=== PATIENT | male | born 1955 | race African-American/Black ===

== ENCOUNTER 2016-04-25 08:11 | Emergency (ER) | payer OTHER ==
[2016-04-25 08:18] VITALS: BMI 22.3
[2016-04-25] MEDS ORDERED: KETOROLAC TROMETHAMINE 30 MG/1 ML VIAL IVPUSH ONE (08:52)
--- NOTE | 2016-04-25 08:52 | PDOC ---
History of Present Illness - General History Source: Patient, Old Records Exam Limitations: No Limitations - History of Present Illness Initial Comments: 04/25/16 08:32 The patient is a 60-year-old man, accompanied by his , with a significant past medical history of hypertension, hypercholesterolemia, coronary artery disease status post cardiac stent placement and asthma who presents to the emergency department via walk-in for further evaluation of right testicular pain since last night. Patient states that ever since he shoveled the snow, last week he started to experiencing left lower back pain that radiated down to his groin that had subsequently resolved. He states that he ultimately developed right sided lower back pain that radiated down his right groin and since yesterday, it has radiated down his right testicle. He states that he bended forward this morning, and this exacerbated his right testicular pain. He denies every experiencing similar pains in the past. No fall, trauma, strenuous activity. No history of sexually transmitted infections/diseases. No associated symptoms of abdominal pain, nausea, vomiting, diarrhea, dysuria, penile discharge. No fever, chills, generalized weakness, chest pain, lightheadedness, dizziness, cough, shortness of breath. Allergies: No Known Drug Allergies Past Surgical History: Cardiac stent placement. Social History: No tobacco, ETOH use. Marijuana use. Primary Care Physician: Dr. Dean Solorio [phone] <Cookie Leone - Last Filed: 04/25/16 12:06> - General History Source: Patient, Old Records Exam Limitations: No Limitations <Ju Campbell - Last Filed: 04/25/16 12:31> - General Chief Complaint: Pain, Acute Stated Complaint: ABD/GROIN PAIN Time Seen by Provider: 04/25/16 08:32 Past History <Cookie Leone - Last Filed: 04/25/16 12:06> - Past Medical History Asthma: Yes Cardiac Disorders: Yes HTN: Yes Hypercholesterolemia: Yes - Surgical History Cardiac Surgery: Yes (STENT) - Immunization History Immunization Up to Date: No - Psycho/Social/Smoking Cessation Hx Anxiety: No Suicidal Ideation: No Smoking Status: No Smoking History: Never smoked Have you smoked in the past 12 months: No Number of Cigarettes Smoked Daily: 0 Hx Alcohol Use: No Drug/Substance Use Hx: No <Ju Campbell - Last Filed: 04/25/16 12:31> - Past Medical History Allergies/Adverse Reactions: Allergies Allergy/AdvReac Type Severity Reaction Status Date / Time No Known Allergies Allergy Verified 04/25/16 08:19 Home Medications: Ambulatory Orders Albuterol Sulfate Inhaler - [Ventolin HFA Inhaler -] 2 inh PO Q4H PRN #1 inh Aspirin [ASA -] 81 mg PO DAILY 11/21/12 Atorvastatin Ca [Lipitor -] 80 mg PO HS 11/21/12 Lisinopril [Prinivil -] 20 mg PO DAILY 11/21/12 Metoprolol Tartrate [Lopressor] 25 mg PO DAILY 11/21/12 Review of Systems - Review of Systems Able to Perform ROS?: Yes Comments:: 04/25/16 08:32 GENERAL/CONSTITUTIONAL: No fever or chills. No weakness. HEAD, EYES, EARS, NOSE AND THROAT: No change in vision. No ear pain or discharge. No sore throat. CARDIOVASCULAR: No chest pain or shortness of breath. RESPIRATORY: No cough, wheezing, or hemoptysis. GASTROINTESTINAL: No nausea, vomiting, diarrhea or constipation. GENITOURINARY:Yes: Right sided testicular and groin pain.No dysuria, frequency, or change in urination. MUSCULOSKELETAL: Yes: left lower back pain (now resolved). Right sided lower back pain.No joint swelling or pain. No neck or back pain. SKIN: No rash NEUROLOGIC: No headache, vertigo, loss of consciousness, or change in strength/ sensation. ENDOCRINE: No increased thirst. No abnormal weight change. HEMATOLOGIC/LYMPHATIC: No anemia, easy bleeding, or history of blood clots. ALLERGIC/IMMUNOLOGIC: No hives or skin allergy. <Cookie Leone - Last Filed: 04/25/16 12:06> *Physical Exam - Vital Signs Last Vital Signs Temp Pulse Resp BP Pulse Ox 97.9 F 57 L 18 116/61 97 04/25/16 08:12 04/25/16 08:12 04/25/16 08:12 04/25/16 08:12 04/25/16 08:12 - Physical Exam Comments: 04/25/16 08:32 GENERAL: Awake, alert, and fully oriented, in no acute distress HEAD: No signs of trauma EYES: PERRLA, EOMI, sclera anicteric, conjunctiva clear ENT: Auricles normal inspection, hearing grossly normal, nares patent, oropharynx clear without exudates. Moist mucosa NECK: Normal ROM, supple, no lymphadenopathy, JVD, or masses LUNGS: Breath sounds equal, clear to auscultation bilaterally. No wheezes, and no crackles HEART: Regular rate and rhythm, normal S1 and S2, no murmurs, rubs or gallops ABDOMEN: Soft, nontender, normoactive bowel sounds. No guarding, no rebound. No masses : Uncircumcised penis with no penile discharge. Testes were descending x2. There is some tenderness to palpation of the right testicle. No scrotal edema noted and no inguinal hernia appreciated. EXTREMITIES: Normal range of motion, no edema. No clubbing or cyanosis. No cords, erythema, or tenderness NEUROLOGICAL: Cranial nerves II through XII grossly intact. Normal speech, normal gait <Cookie Leone - Last Filed: 04/25/16 12:06> - Vital Signs Last Vital Signs Temp Pulse Resp BP Pulse Ox 97.9 F 57 L 18 116/61 97 04/25/16 08:12 04/25/16 08:12 04/25/16 08:12 04/25/16 08:12 04/25/16 08:12 <Ju Campbell - Last Filed: 04/25/16 12:31> ED Treatment Course - LABORATORY CBC & Chemistry Diagram: 04/25/16 09:15 04/25/16 09:15 - RADIOLOGY Radiograph Interpretation: 04/25/16 12:06 EXAM: US/SCROTUM AND CONTENTS US IMPRESSION: Right testicular pain. Real time and doppler evaluation of the testes demonstrates the following: The testes are normal in size with the right testicle measuring 3.5 x 2.3 x 1.9 cm and the left testicle measuring 3.3 x 2.5 x 1.9 cm. They are normal in texture with no evidence of testicular masses. Normal arterial flow is seen within both testes with no evidence of torsion. No epididymal abnormalities are present. There is a very small right-sided hydrocele. No significant left scrotal fluid collections are present. <Cookie Leone - Last Filed: 04/25/16 12:06> - LABORATORY CBC & Chemistry Diagram: 04/25/16 09:15 04/25/16 09:15 <Ju Campbell - Last Filed: 04/25/16 12:31> Medical Decision Making - Medical Decision Making 04/25/16 08:53 60-year-old male with history of hypertension who presents the emergency department with one day history of right testicle pain. Differential diagnosis includes but is not limited to: Torsion, epididymitis, hernia, kidney stone, UTI. Plan: 1. Labs 2. Urine analysis and GC/chlamydia NAAT 3. Scrotal ultrasound 4. Pain management 5. Observe and reevaluate 04/25/16 12:29 Addendum: Labs were reviewed and are noted in the EMR. The urine has no blood, nitrites, or leukoesterase. The scrotal ultrasound shows a small right hydrocele but otherwise there is no epididymitis or testicular torsion. I have reevaluated the patient at this time and he is feeling improved. I have discussed all of the labs and radiographic studies with the patient. I've advised the patient follow-up with his primary care physician and return to the emergency department if his symptoms persist, worsen, or new symptoms arise. <Ju Campbell - Last Filed: 04/25/16 12:31> *DC/Admit/Observation/Transfer - Attestations Scribe Attestion: 04/25/16 08:32 Documentation prepared by Cookie Leone, acting as medical referral coordinator for Ju Campbell MD. <Cookie Leone - Last Filed: 04/25/16 12:06> - Discharge Dispostion Admit: No - Attestations Physician Attestion: 04/25/16 08:55 I, Dr. Ju Campbell, attest that the scribes documentation that appears above has been prepared under my direction and personally reviewed by me in its entirety. I confirmed that the note above accurately reflects all work, treatment, procedures, and medical decision-making performed by me. <Ju Campbell - Last Filed: 04/25/16 12:31> Diagnosis at time of Disposition: Testicular pain, right - Discharge Dispostion Disposition: HOME Condition at time of disposition: Stable - Referrals Referrals: Dean Solorio MD [Primary Care Provider] - - Patient Instructions Additional Instructions: You were seen today for testicular pain. The ultrasound shows that there is no infection or torsion of the testicle. Your urine analysis was negative. Please take Motrin/ibuprofen 800 mg every 6-8 hours as needed for pain. He should follow-up with her primary care physician within one week and return to the emergency department if her symptoms persist, worsen, or new symptoms arise.
[2016-04-25] MEDS ORDERED: KETOROLAC TROMETHAMINE 30 MG/1 ML VIAL ONE (09:01)
[2016-04-25 09:29] LABS: BASOPHIL 0.4 % (0-2.0); EOSINOPHIL 1.4 % (0-4.5); MCH 31.3 pg (25.7-33.7); MCHC 32.1 g/dl (32.0-35.9); MEAN CELL VOLUME 97.5 fl (80-96); NEUTROPHILS 64.9 % (42.8-82.8); PLATELET COUNT 108 K/MM3 (134-434); RDW 14.1 % (11.9-15.9); WHITE BLOOD COUNT 4.5 K/mm3 (4.0-10.0)
[2016-04-25 10:02] LABS: CALCIUM 8.2 mg/dL (8.5-10.1); CREATININE 0.8 mg/dL (0.7-1.3); MAGNESIUM 2.4 mg/dL (1.8-2.4); PHOSPHOROUS 3.1 mg/dL (2.5-4.9)
[2016-04-25 10:42] LABS: URINE APPEARANCE CLEAR; URINE BILIRUBIN NEGATIVE (NEGATIVE); URINE BLOOD NEGATIVE (NEGATIVE); URINE COLOR STRAW; URINE GLUCOSE (UA) NEGATIVE (NEGATIVE); URINE KETONE NEGATIVE (NEGATIVE); URINE LEUK ESTERASE NEGATIVE (NEGATIVE); URINE NITRITE NEGATIVE (NEGATIVE); URINE PROTEIN NEGATIVE (NEGATIVE); URINE UROBILINOGEN NEGATIVE E.U./dl (0.2-1.0)
[2016-04-25 13:09] VITALS: BP 156/82; PULSE 52; TEMP 98
== END 2016-04-25 13:00 | disposition home or self-care (01) ==
LOC: JER 08:11
PROC: 3E0333Z Introduction of Anti-inflammatory into Peripheral Vein, Percutaneous Approach (ICD-10-PCS; principal; 2016-04-25)
DX: N50.811 Right testicular pain (principal); I25.10 Atherosclerotic heart disease of native coronary artery without angina pectoris; I10 Essential (primary) hypertension; Z95.5 Presence of coronary angioplasty implant and graft; J45.909 Unspecified asthma, uncomplicated; E78.00 Pure hypercholesterolemia, unspecified
CPT/HCPCS: 36415; 76870-TC; 80048; 81003; 83735; 84100; 85025; 87491; 87591; 99282-25

== ENCOUNTER 2016-07-21 03:53 | Emergency (ER) | payer OTHER ==
[2016-07-21 04:14] VITALS: BP 148/80; PULSE 70; TEMP 98.4; BMI 22.3
[2016-07-21] MEDS ORDERED: ALBUTEROL SO4 2.5/IPRATROPIUM 0.5 INH SOL 3 ML VIAL.NEB. NEB ONE ×2 (05:06→06:14)
[2016-07-21] MEDS ORDERED: DEXAMETHASONE 4 MG TABLET (FP) PO ONE (05:07)
[2016-07-21 05:19] LABS: BASOPHIL 0.3 % (0-2.0); EOSINOPHIL 3.8 % (0-4.5); MCH 31.3 pg (25.7-33.7); MCHC 32.5 g/dl (32.0-35.9); MEAN CELL VOLUME 96.5 fl (80-96); PLATELET COUNT 149 K/MM3 (134-434); RDW 13.8 % (11.9-15.9); WHITE BLOOD COUNT 7.1 K/mm3 (4.0-10.0)
[2016-07-21] MEDS: AZITHROMYCIN 250 MG TABLET (FP) PO ONE ×2 (05:30→06:26)
[2016-07-21 05:49] LABS: ALBUMIN 3.7 g/dl (3.4-5.0); ANION GAP 8 (8-16); BILIRUBIN,TOTAL 1.1 mg/dL (0.2-1.0); CALCIUM 8.8 mg/dL (8.5-10.1); CO2 27 mmol/L (21-32); COCKROFT - GAULT 99.53; CREATININE 0.8 mg/dL (0.7-1.3); GLUCOSE,RANDOM 124 mg/dL (74-106); SGOT/AST 29 U/L (15-37); SGPT/ALT 38 U/L (12-78); TOT PROT 6.8 g/dl (6.4-8.2)
[2016-07-21 05:50] LABS: ALK PHOS 101 U/L (45-117)
--- NOTE | 2016-07-21 06:05 | PDOC ---
History of Present Illness - General Chief Complaint: Shortness of Breath Stated Complaint: DIFFICULTY BREATHING Time Seen by Provider: 07/21/16 04:25 - History of Present Illness Initial Comments: 07/21/16 05:48 CHIEF COMPLAINT: shortness of breath HISTORY OF PRESENT ILLNESS: 61 yo M with hx of HTN, HLD, asthma presents to ED with shortness of breath x 3-4 days. Patient states he has had a "sometimes" productive cough and sneezing for the past 3 days. He denies any fever, nausea , vomiting, diarrhea. No recent travel or sick contacts. PAST MEDICAL HISTORY: as per HPI FAMILY HISTORY: Denies SOCIAL HISTORY: Denies tobacco, alcohol. Occasional marijuana use. SURGICAL HISTORY: Denies ALLERGIES: No known drug allergies REVIEW OF SYSTEMS General/Constitutional: Denies fever or chills. Denies weakness, weight change. HEENT: Denies change in vision. Denies ear pain or discharge. Denies sore throat. Cardiovascular: Denies chest pain. Respiratory: Cough x 3 days. Denies hemoptysis. Gastrointestinal: Denies nausea, vomiting, diarrhea or constipation. Denies rectal bleeding. Genitourinary: Denies dysuria, frequency, or change in urination. Musculoskeletal: Denies joint or muscle swelling or pain. Denies neck or back pain. Skin and breasts: Denies rash or easy bruising. Neurologic: Denies headache, vertigo, loss of consciousness, or loss of sensation. PHYSICAL EXAM General Appearance: Well-appearing, appropriately dressed. No apparent distress , no intoxication. HEENT: EOMI, PERRLA, normal ENT inspection, normal voice, TMs normal, pharynx normal. No conjunctival pallor. No photophobia, scleral icterus. Neck: Supple. Trachea midline. No tenderness, rigidity, carotid bruit, stridor , lymphadenopathy, or thyromegaly. Respiratory/Chest: Expiratory wheezing and rales b/l. No shortness of breath, chest tenderness, respiratory distress, accessory muscle use. Cardiovascular: RRR. S1, S2. No JVD, murmur, bradycardia, tachycardia. Vascular Pulses: Dorsalis-Pedis (R): 2+, Dorsalis-Pedis (L): 2+ Gastrointestinal/Abdominal: Normal bowel sounds. Abdomen soft, non-distended. No tenderness or rebound tenderness. No organomegaly, pulsatile mass, guarding , hernia, hepatomegaly, splenomegaly. Lymphatic: No adenopathy, tenderness. Musculoskeletal/Extremities: Normal inspection. FROM of all extremities, normal capillary refill. Pelvis Stable. No CVA tenderness. No tenderness to extremities, pedal edema, swelling, erythema or deformity. Integumentary: Appropriate color, dry, warm. No cyanosis, erythema, jaundice or rash Neurologic: communication equipment mechanic II-XII intact. Fully oriented, alert. Appropriate mood/affect. Motor strength 5/5. No appreciable EOM palsy, facial droop or sensory deficit. 07/21/16 06:05 Past History - Past Medical History Allergies/Adverse Reactions: Allergies Allergy/AdvReac Type Severity Reaction Status Date / Time No Known Allergies Allergy Verified 07/21/16 04:13 Home Medications: Ambulatory Orders Albuterol Sulfate Inhaler - [Ventolin HFA Inhaler -] 2 inh PO Q4H PRN #1 inh Aspirin [ASA -] 81 mg PO DAILY 11/21/12 Atorvastatin Ca [Lipitor -] 80 mg PO HS 11/21/12 Lisinopril [Prinivil -] 20 mg PO DAILY 11/21/12 Metoprolol Tartrate [Lopressor] 25 mg PO DAILY 11/21/12 Azithromycin [Zithromax Tri-Casey (3 DAYS) -] 500 mg PO DAILY #3 tablet 07/21/16 Asthma: Yes Cardiac Disorders: Yes HTN: Yes Hypercholesterolemia: Yes - Surgical History Cardiac Surgery: Yes (STENT) - Immunization History Immunization Up to Date: No - Psycho/Social/Smoking Cessation Hx Anxiety: No Suicidal Ideation: No Smoking Status: No Smoking History: Current some day smoker Have you smoked in the past 12 months: Yes Number of Cigarettes Smoked Daily: 0 Information on smoking cessation initiated: No Hx Alcohol Use: No Drug/Substance Use Hx: (marijuana) *Physical Exam - Vital Signs Last Vital Signs Temp Pulse Resp BP Pulse Ox 98.4 F 70 18 148/80 97 07/21/16 04:13 07/21/16 04:13 07/21/16 04:13 07/21/16 04:13 07/21/16 04:13 ED Treatment Course - LABORATORY CBC & Chemistry Diagram: 07/21/16 05:06 07/21/16 05:06 - ADDITIONAL ORDERS Additional order review: 07/21/16 05:06 RBC 4.05 MCV 96.5 H MCHC 32.5 RDW 13.8 MPV 11.0 Neutrophils % 71.0 Lymphocytes % 18.1 D Monocytes % 6.8 Eosinophils % 3.8 D Basophils % 0.3 - RADIOLOGY Radiology Studies Ordered: Category Date Time Status CHEST PA & LAT [RAD] Stat Radiology 07/21/16 04:45 Taken Medical Decision Making - Medical Decision Making 07/21/16 06:05 61 yo M with hx of HTN, HLD, asthma presents to ED with shortness of breath x 3- 4 days. -CBC, CMP, BNP -CXR, EKG -Azithromycin -Decadron po -Duoneb EKG unchanged from prior. Patient reassessed; states he is feeling better. RX azithromycin sent to pharm. Will discharge to home with close f/u with PMD. Advised patient to take medication as prescribed and follow up with PMD. Advised patient of signs and symptoms for return to ED. Patient verbalized understanding and agrees to plan. 07/21/16 06:40 *DC/Admit/Observation/Transfer Diagnosis at time of Disposition: Bronchitis - Discharge Dispostion Admit: No - Prescriptions Prescriptions: Azithromycin [Zithromax Tri-Casey (3 DAYS) -] 500 mg PO DAILY #3 tablet - Referrals Referrals: Dean Solorio MD [Primary Care Provider] - - Patient Instructions Printed Discharge Instructions: DI for Acute Bronchitis Additional Instructions: Please take medication as prescribed. Follow up with your primary care doctor if symptoms persist after completing your medication. If you experience any shortness of breath unrelieved by your inhaler, chest pain, palpitations, fever , nausea, vomiting, diarrhea or any new or worsening symptoms, please return to the ER.
[2016-07-21] MEDS ORDERED: DEXAMETHASONE SOD PHOSPHATE 10 MG/1 ML VIAL ONE (06:15)
[2016-07-21] MEDS ORDERED: AZITHROMYCIN 250 MG TABLET (FP) ONE (06:16)
--- NOTE | 2016-07-21 06:17 | PDOC ---
*Physical Exam - Vital Signs Last Vital Signs Temp Pulse Resp BP Pulse Ox 98.4 F 70 18 148/80 97 07/21/16 04:13 07/21/16 04:13 07/21/16 04:13 07/21/16 04:13 07/21/16 04:16 ED Treatment Course - LABORATORY CBC & Chemistry Diagram: 07/21/16 05:06 07/21/16 05:06 - ADDITIONAL ORDERS Additional order review: Laboratory Results 07/21/16 07/21/16 05:06 05:06 Sodium 145 Potassium 3.6 Chloride 110 H Carbon Dioxide 27 Anion Gap 8 BUN 16 Creatinine 0.8 Creat Clearance w eGFR > 60 Random Glucose 124 H D Calcium 8.8 Total Bilirubin 1.1 H D AST 29 ALT 38 D Alkaline Phosphatase 101 B-Natriuretic Peptide 125.25 H Total Protein 6.8 Albumin 3.7 07/21/16 05:06 RBC 4.05 MCV 96.5 H MCHC 32.5 RDW 13.8 MPV 11.0 Neutrophils % 71.0 Lymphocytes % 18.1 D Monocytes % 6.8 Eosinophils % 3.8 D Basophils % 0.3 - Medications Given in the ED: ED Medications Discontinued Medications Generic Name Dose Route Start Last Admin Trade Name Freq PRN Reason Stop Dose Admin Albuterol/Ipratropium 1 amp 07/21/16 05:06 07/21/16 05:30 Duoneb - NEB 07/21/16 05:07 1 amp ONCE ONE Administration Azithromycin 500 mg 07/21/16 05:06 07/21/16 05:30 Zithromax - PO 07/21/16 05:07 500 mg ONCE ONE Administration Dexamethasone 10 mg 07/21/16 05:07 07/21/16 05:30 Decadron - PO 07/21/16 05:08 10 mg ONCE ONE Administration Medical Decision Making - Medical Decision Making 07/21/16 06:17 agree with care from ALETHA Mc *DC/Admit/Observation/Transfer Diagnosis at time of Disposition: Bronchitis - Prescriptions Prescriptions: Azithromycin [Zithromax Tri-Casey (3 DAYS) -] 500 mg PO DAILY #3 tablet - Referrals Referrals: Dean Solorio MD [Primary Care Provider] - - Patient Instructions - Post Discharge Activity
--- NOTE | 2016-07-21 12:30 | EKG ---
Test Reason : Blood Pressure : / mmHG Vent. Rate : 067 BPM Atrial Rate : 067 BPM P-R Int : 140 ms QRS Dur : 086 ms QT Int : 410 ms P-R-T Axes : 070 079 056 degrees QTc Int : 433 ms NORMAL SINUS RHYTHM MODERATE VOLTAGE CRITERIA FOR LVH, MAY BE NORMAL VARIANT BORDERLINE ECG WHEN COMPARED WITH ECG OF 19-JAN-2015 22:57, NO SIGNIFICANT CHANGE WAS FOUND Confirmed by MARY DOUGLAS, NIDIA ([id number]) on 07/21/2016 12:30:06 PM Referred By: Confirmed By:NIDIA HERNANDEZ MD
== END 2016-07-21 06:48 | disposition home or self-care (01) ==
LOC: JER 03:53
PROC: 3E0F7GC Introduction of Other Therapeutic Substance into Respiratory Tract, Via Natural or Artificial Opening (ICD-10-PCS; principal; 2016-07-21)
DX: J40 Bronchitis, not specified as acute or chronic (principal); I10 Essential (primary) hypertension; E78.5 Hyperlipidemia, unspecified; J45.909 Unspecified asthma, uncomplicated
CPT/HCPCS: 36415; 71020-TC; 80053; 83880; 85025; 93005; 93010; 99282-25

== ENCOUNTER 2018-05-16 16:23 | Emergency (ER) | payer OTHER ==
[2018-05-16 16:37] VITALS: BP 163/80; PULSE 87; TEMP 98.5; BMI 21.4
[2018-05-16] MEDS ORDERED: DEXAMETHASONE LIQUID 0.5 MG/5 ML 240 ML BULK BOTTLE PO ONE (16:47)
[2018-05-16] MEDS ORDERED: DEXAMETHASONE SOD PHOSPHATE 10 MG/1 ML VIAL ONE (16:50)
[2018-05-16] MEDS ORDERED: ALBUTEROL SO4 2.5/IPRATROPIUM 0.5 INH SOL 3 ML VIAL.NEB. NEB ONE (16:50)
--- NOTE | 2018-05-16 16:54 | PDOC ---
History of Present Illness - General Chief Complaint: Asthma Stated Complaint: COUGH/WHEEZING Time Seen by Provider: 05/16/18 16:37 - History of Present Illness Initial Comments: 05/16/18 16:48 62-year-old male with a past medical history significant for hypertension and dyslipidemia presents for evaluation of an exacerbation of asthma. He also takes albuterol at home which has not helped him. He has never been intubated or hospitalized for asthma. He does not take steroids for asthma. His shortness of breath and wheezing started last night Past History - Past Medical History Allergies/Adverse Reactions: Allergies Allergy/AdvReac Type Severity Reaction Status Date / Time No Known Allergies Allergy Verified 05/16/18 16:47 Home Medications: Ambulatory Orders Aspirin [ASA -] 81 mg PO DAILY 11/21/12 Atorvastatin Ca [Lipitor -] 80 mg PO HS 11/21/12 Lisinopril [Prinivil -] 20 mg PO DAILY 11/21/12 Metoprolol Tartrate [Lopressor] 25 mg PO DAILY 11/21/12 Asthma: Yes Cardiac Disorders: Yes COPD: No HTN: Yes Hypercholesterolemia: Yes - Surgical History Cardiac Surgery: Yes (STENT) - Immunization History Immunization Up to Date: No - Suicide/Smoking/Psychosocial Hx Smoking Status: No Smoking History: Never smoked Have you smoked in the past 12 months: Yes Number of Cigarettes Smoked Daily: 0 Information on smoking cessation initiated: No Hx Alcohol Use: No Drug/Substance Use Hx: No Review of Systems - Review of Systems Constitutional: No: Fever Respiratory: Yes: Cough, Shortness of Breath, Wheezing *Physical Exam - Vital Signs Last Vital Signs Temp Pulse Resp BP Pulse Ox 98.5 F 87 16 163/80 95 05/16/18 16:30 05/16/18 16:30 05/16/18 16:30 05/16/18 16:30 05/16/18 16:30 - Physical Exam Comments: 05/16/18 16:48 HEAD: NC/AT EYES: Conjuntiva clear Ears: Canals and TM's normal NOSE: No d/c THROAT: Moist mucous membrances, oral pharanx clear, uvula midline NECK: Supple without adenopathy CARDIAC: S1 S2 LUNGS: Diffuse wheezing ABDOMEN: Soft NT ND MS: Full ROM in all joints without edema NEUROLOGIC: No gross sensory or motor deficits, NVID SKIN: Normal color and temperature no lesions or rashes Medical Decision Making - Medical Decision Making 05/16/18 18:18 clear after 4 duo nebs and decadron will d/c home with pulmonology f/u *DC/Admit/Observation/Transfer Diagnosis at time of Disposition: Asthma exacerbation - Discharge Dispostion Disposition: HOME Condition at time of disposition: Stable Decision to Admit order: No - Referrals Referrals: Dean Solorio MD [Primary Care Provider] - Andrez Carpio MD, MD [Staff Physician] - - Patient Instructions Printed Discharge Instructions: Asthma -- Adult Additional Instructions: Return to the emergency room for worsening symptoms. Please follow-up with pulmonology in one to 2 days for further evaluation and treatment options. Continue your home medication albuterol as directed - Post Discharge Activity
[2018-05-16] MEDS: ALBUTEROL SO4 2.5/IPRATROPIUM 0.5 INH SOL 3 ML VIAL.NEB. NEB SCH ×4 (16:55→18:10)
--- NOTE | 2018-05-21 10:44 | EKG ---
Test Reason : Blood Pressure : / mmHG Vent. Rate : 096 BPM Atrial Rate : 096 BPM P-R Int : 156 ms QRS Dur : 088 ms QT Int : 346 ms P-R-T Axes : 082 083 059 degrees QTc Int : 437 ms NORMAL SINUS RHYTHM POSSIBLE LEFT ATRIAL ENLARGEMENT BORDERLINE ECG WHEN COMPARED WITH ECG OF 21-JUL-2016 05:06, NO SIGNIFICANT CHANGE WAS FOUND Confirmed by MARY DOUGLAS, NIDIA ([id number]) on 05/21/2018 10:44:20 AM Referred By: Confirmed By:NIDIA HERNANDEZ MD
== END 2018-05-16 18:28 | disposition home or self-care (01) ==
LOC: JERFT 16:23
PROC: 3E0F7GC Introduction of Other Therapeutic Substance into Respiratory Tract, Via Natural or Artificial Opening (ICD-10-PCS; principal; 2018-05-16)
DX: J45.901 Unspecified asthma with (acute) exacerbation (principal); I11.9 Hypertensive heart disease without heart failure; E78.5 Hyperlipidemia, unspecified; Z79.82 Long term (current) use of aspirin; Z95.5 Presence of coronary angioplasty implant and graft
CPT/HCPCS: 93005; 93010; 99281-25

== ENCOUNTER 2021-11-12 13:49 | Emergency (ER) | payer OTHER ==
[2021-11-12 14:05] VITALS: BP 176/102; PULSE 54; RESP 18; TEMP 98; BMI 21.6
[2021-11-12 15:10] LABS: HEMATOCRIT 36.4 % (35.4-49); HEMOGLOBIN 12.7 G/dL (11.7-16.9); MCH 34.3 pg (25.7-33.7); MCHC 34.9 g/dl (32.0-35.9); MEAN CELL VOLUME 98.4 fl (80-96); PLATELET COUNT 123.9 10^3/uL (134-434); RDW 13.2 % (11.9-15.9); WHITE BLOOD COUNT 4.1 10^3/uL (4.0-10.8)
[2021-11-12 15:12] LABS: INR 1.11 (0.83-1.09); PROTHROMBIN TIME (PATIENT) 12.8 SEC (9.7-13.0)
[2021-11-12 15:15] LABS: ACTIVATED PTT 30.1 SECONDS (25.2-36.5)
[2021-11-12 15:18] LABS: ALBUMIN 3.7 g/dl (3.4-5.0); BILIRUBIN,TOTAL 1.1 mg/dl (0.2-1); CALCIUM 8.6 mg/dl (8.5-10); CREATININE 0.8 mg/dl (0.55-1.3); TOT PROT 6.6 g/dl (6.4-8.2)
[2021-11-12 15:20] LABS: PLATELET ESTIMATE DECREASED
== END 2021-11-12 15:54 | disposition home or self-care (01) ==
LOC: FER 13:49
DX: I82.412 Acute embolism and thrombosis of left femoral vein (principal)
CPT/HCPCS: 36415; 80053; 85025; 85610; 85730; 99283-25